=== PATIENT | male | born 1995 | race Two or more races ===

== ENCOUNTER 2023-01-19 05:30 | Emergency (ER) | payer OTHER ==
[~2023-01-19] VITALS: Ht 167.6 cm; Wt 83.9 kg
[2023-01-19] MEDS ORDERED: AZOR 10-20 MG1 EACH (05:54)
[2023-01-19] MEDS ORDERED: PHENAGIL TABLE1 EACH PO (07:17)
== END 2023-01-19 07:27 | disposition home or self-care (01) ==
LOC: ER 05:31
DX: T59.891A Toxic effect of other specified gases, fumes and vapors, accidental (unintentional), initial encounter (principal); R51.9 Headache, unspecified; Y92.813 Airplane as the place of occurrence of the external cause; I10 Essential (primary) hypertension